=== PATIENT | male | born 1965 | race American Indian/Alaskan Native ===

== ENCOUNTER 2019-01-30 11:13 | Emergency (ER) | payer OTHER ==
[2019-01-30] MEDS ORDERED: VICKS SINEX NS ONE (11:22)
[2019-01-30] MEDS ORDERED: XYLOCAINE 2%/EPI 1:100,000 INFILTRATI ONE (11:23)
[2019-01-30] MEDS ORDERED: COCAINE 4% TP ONE (11:39)
[2019-01-30] MEDS ORDERED: CATAPRES PO ONE (12:06)
[2019-01-30 13:00] LABS: Basophils # (Auto) 0.1 K/mm3 (0.0-0.1); Basophils % (Auto) 1.4 % (0.0-1.8); Eosinophils # (Auto) 0.1 K/mm3 (0.0-0.4); Eosinophils % (Auto) 2.1 % (0.0-4.3); Hematocrit 32.5 % (35.5-45.6); Hemoglobin 10.9 gm/dl (11.8-15.2); Lymphocytes # (Auto) 0.9 K/mm3 (1.2-5.4); Lymphocytes % (Auto) 18.7 % (13.4-35.0); Mean Corpuscular HGB Conc 33 % (32-34); Mean Corpuscular Volume 83 fl (84-94); Monocytes # (Auto) 0.5 K/mm3 (0.0-0.8); Monocytes % (Auto) 9.5 % (0.0-7.3); Platelet Count 215 K/mm3 (140-440); Red Cell Distribution Width 17.3 % (13.2-15.2)
--- NOTE | 2019-01-30 14:16 | Emergency Department Report ---
ED General Adult HPI - General Chief complaint: Nosebleed Stated complaint: NOSE BLEED Time Seen by Provider: 01/30/19 11:36 Source: patient Mode of arrival: Ambulatory Limitations: No Limitations - History of Present Illness Initial comments: Patient is a 53-year-old male past medical history of atrial fibrillation and congestive heart failure who presents with epistaxis that has been going on for the last 30 minutes. Patient states that he had a nosebleed on however it resolved. Patient takes Elliquis for his atrial fibrillation and he states that he had some profuse bleeding in his nose. Patient denies being any pain - Related Data Previous Rx's Medication Instructions Recorded Last Taken Type Oxymetazoline 0.05% [Afrin] 2 spray NS Q6H #1 bottle 01/30/19 Unknown Rx Allergies Allergy/AdvReac Type Severity Reaction Status Date / Time No Known Allergies Allergy Verified 01/30/19 11:25 ED Review of Systems ROS: Stated complaint: NOSE BLEED Other details as noted in HPI Constitutional: denies: chills, fever Eyes: denies: eye pain, eye discharge, vision change ENT: epistaxis. denies: ear pain, throat pain Respiratory: denies: cough, shortness of breath, wheezing Cardiovascular: denies: chest pain, palpitations Endocrine: no symptoms reported Gastrointestinal: denies: abdominal pain, nausea, diarrhea Genitourinary: denies: urgency, dysuria Musculoskeletal: denies: back pain, joint swelling, arthralgia Skin: denies: rash, lesions Neurological: denies: headache, weakness, paresthesias Psychiatric: denies: anxiety, depression Hematological/Lymphatic: denies: easy bleeding, easy bruising ED Past Medical Hx - Past Medical History Previous Medical History?: Yes Hx Hypertension: Yes Additional medical history: chf, cardioversion,gout - Surgical History Past Surgical History?: No - Social History Smoking Status: Never Smoker Substance Use Type: None - Medications Home Medications: Home Medications Medication Instructions Recorded Confirmed Last Taken Type Oxymetazoline 0.05% [Afrin] 2 spray NS Q6H #1 bottle 01/30/19 Unknown Rx ED Physical Exam - General Limitations: No Limitations General appearance: alert, in no apparent distress - Head Head exam: Present: atraumatic, normocephalic - Eye Eye exam: Present: normal appearance - ENT ENT exam: Present: other (epistaxis bilaterally ) - Neck Neck exam: Present: normal inspection - Respiratory Respiratory exam: Present: normal lung sounds bilaterally. Absent: respiratory distress - Cardiovascular Cardiovascular Exam: Present: regular rate, normal rhythm. Absent: systolic murmur, diastolic murmur, rubs, gallop - GI/Abdominal GI/Abdominal exam: Present: soft, normal bowel sounds - Rectal Rectal exam: Present: deferred - Extremities Exam Extremities exam: Present: normal inspection - Back Exam Back exam: Present: normal inspection - Neurological Exam Neurological exam: Present: alert, oriented X3 - Psychiatric Psychiatric exam: Present: normal affect, normal mood - Skin Skin exam: Present: warm, dry, intact, normal color. Absent: rash ED Course Vital Signs 01/30/19 01/30/19 01/30/19 11:19 12:25 12:27 Temperature 98 F Pulse Rate 89 43 L Respiratory 18 16 Rate Blood Pressure 201/117 Blood Pressure 158/88 [Left] O2 Sat by Pulse 98 100 100 Oximetry 01/30/19 01/30/19 01/30/19 12:30 12:37 12:46 Temperature Pulse Rate Respiratory Rate Blood Pressure 162/89 165/87 162/89 Blood Pressure [Left] O2 Sat by Pulse 97 99 Oximetry 01/30/19 01/30/19 13:00 13:16 Temperature Pulse Rate Respiratory Rate Blood Pressure 162/101 162/101 Blood Pressure [Left] O2 Sat by Pulse 96 99 Oximetry - Procedure Description Procedures done: Provided epistaxis treatment applied 4% topical cocaine to multiple Q-tips and packed both nares in place. Bleeding stopped observed patient several hours after movable and patient is bleeding has ceased patient tolerated the procedure well. ED Medical Decision Making - Lab Data Result diagrams: 01/30/19 12:40 Lab Results 01/30/19 Range/Units 12:40 WBC 5.0 (4.5-11.0) K/mm3 RBC 3.90 (3.65-5.03) M/mm3 Hgb 10.9 L (11.8-15.2) gm/dl Hct 32.5 L (35.5-45.6) % MCV 83 L (84-94) fl MCH 28 (28-32) pg MCHC 33 (32-34) % RDW 17.3 H (13.2-15.2) % Plt Count 215 (140-440) K/mm3 Lymph % (Auto) 18.7 (13.4-35.0) % [place] % (Auto) 9.5 H (0.0-7.3) % Eos % (Auto) 2.1 (0.0-4.3) % Baso % (Auto) 1.4 (0.0-1.8) % Lymph # 0.9 L (1.2-5.4) K/mm3 [place] # 0.5 (0.0-0.8) K/mm3 Eos # 0.1 (0.0-0.4) K/mm3 Baso # 0.1 (0.0-0.1) K/mm3 Seg Neutrophils % 68.3 (40.0-70.0) % Seg Neutrophils # 3.4 (1.8-7.7) K/mm3 - Medical Decision Making Chief medical diagnosis: Anterior epistaxis Differential medical diagnosis: Posterior epistaxis, coagulopathy, I will get CBC and will do anterior packing of the nose tolerated the procedure well also and patient home and follow-up with his primary care doctor discussed plan with patient agrees with plan additional verbal discharge instructions were given Critical care attestation.: If time is entered above; I have spent that time in minutes in the direct care of this critically ill patient, excluding procedure time. ED Disposition Clinical Impression: Epistaxis Disposition: DC-01 TO HOME OR SELFCARE Is pt being admited?: No Does the pt Need Aspirin: No Condition: Stable Instructions: Epistaxis (ED) Prescriptions: Oxymetazoline 0.05% [Afrin] 2 spray NS Q6H #1 bottle Referrals: CHUN SAWYER MD [Referring] - 3-5 Days
[2019-01-31 18:51] VITALS: BP 162/101
== END 2019-01-30 14:50 | disposition home or self-care (01) ==
LOC: ED 11:13
DX: R04.0 Epistaxis (principal); I11.0 Hypertensive heart disease with heart failure; I50.9 Heart failure, unspecified; M10.9 Gout, unspecified
CPT/HCPCS: 36415; 85025; 99283

== ENCOUNTER 2019-02-09 17:59 | Emergency (ER) | payer OTHER ==
--- NOTE | 2019-02-09 18:05 | Emergency Department Report ---
Blank Doc - Documentation Documentation: This is a 53-year-old male that presents with nosebleed. Stated is on a blood thinner. This initial assessment/diagnostic orders/clinical plan/treatment(s) is/are subject to change based on patient's health status, clinical progression and re- assessment by fellow clinical providers in the ED. Further treatment and workup at subsequent clinical providers discretion. Patient/guardians urged not to elope from the ED as their condition may be serious if not clinically assessed and managed. Initial orders include: 1- Patient sent to MAIN for further evaluation and treatment 2- labs
[2019-02-09] MEDS ORDERED: VICKS SINEX NS ONE (18:39)
[2019-02-09 19:03] LABS: Basophils # (Auto) 0.1 K/mm3 (0.0-0.1); Basophils % (Auto) 1.2 % (0.0-1.8); Eosinophils # (Auto) 0.2 K/mm3 (0.0-0.4); Eosinophils % (Auto) 4.2 % (0.0-4.3); Hematocrit 34.5 % (35.5-45.6); Hemoglobin 11.3 gm/dl (11.8-15.2); Lymphocytes # (Auto) 1.3 K/mm3 (1.2-5.4); Lymphocytes % (Auto) 23.8 % (13.4-35.0); Mean Corpuscular HGB Conc 33 % (32-34); Mean Corpuscular Volume 84 fl (84-94); Monocytes # (Auto) 0.6 K/mm3 (0.0-0.8); Monocytes % (Auto) 10.8 % (0.0-7.3); Platelet Count 245 K/mm3 (140-440); Red Cell Distribution Width 18.2 % (13.2-15.2)
[2019-02-09 19:11] LABS: INR 1.12 (0.87-1.13)
[2019-02-09 19:12] LABS: Partial Thromboplastin Time 31.6 Sec. (24.2-36.6)
--- NOTE | 2019-02-09 19:15 | Emergency Department Report ---
ED ENT HPI - General Chief complaint: Nosebleed Stated complaint: NOSE BLEED FOR HOURS Time Seen by Provider: 02/09/19 18:04 Source: patient Mode of arrival: Ambulatory Limitations: No Limitations - History of Present Illness Initial comments: 53-year-old male, currently on Levaquin is for A. fib, presents to ED with intermittent nosebleed over the last 3 days, worsening today. Patient states believes are spontaneous, denies blowing nose, rubbing nose, picking nose. Unable to control the bleeding this evening. MD complaint: epistaxis -: days(s) (3) Location: nose Severity: moderate Consistency: intermittent Improves with: pressure Worsens with: none Context-Epistaxis: other (Eliquis use for Afib) - Related Data Previous Rx's Medication Instructions Recorded Last Taken Type Oxymetazoline 0.05% [Afrin] 2 spray NS Q6H #1 bottle 01/30/19 Unknown Rx Allergies Allergy/AdvReac Type Severity Reaction Status Date / Time No Known Allergies Allergy Verified 01/30/19 11:25 ED Dental HPI - General Chief complaint: Nosebleed Stated complaint: NOSE BLEED FOR HOURS Time Seen by Provider: 02/09/19 18:04 Source: patient Mode of arrival: Ambulatory Limitations: No Limitations - Related Data Previous Rx's Medication Instructions Recorded Last Taken Type Oxymetazoline 0.05% [Afrin] 2 spray NS Q6H #1 bottle 01/30/19 Unknown Rx Allergies Allergy/AdvReac Type Severity Reaction Status Date / Time No Known Allergies Allergy Verified 01/30/19 11:25 ED Review of Systems ROS: Stated complaint: NOSE BLEED FOR HOURS Other details as noted in HPI Comment: All other systems reviewed and negative ENT: epistaxis Neurological: denies: headache ED Past Medical Hx - Past Medical History Previous Medical History?: Yes Hx Hypertension: Yes Additional medical history: chf, cardioversion,gout - Social History Smoking Status: Never Smoker - Medications Home Medications: Home Medications Medication Instructions Recorded Confirmed Last Taken Type Oxymetazoline 0.05% [Afrin] 2 spray NS Q6H #1 bottle 01/30/19 Unknown Rx ED Physical Exam - General Limitations: No Limitations General appearance: alert, in no apparent distress - Head Head exam: Present: atraumatic, normocephalic - Eye Eye exam: Present: normal appearance - ENT ENT exam: Present: other (active bleeding from right nare) - Respiratory Respiratory exam: Present: normal lung sounds bilaterally. Absent: respiratory distress - Cardiovascular Cardiovascular Exam: Present: regular rate, normal rhythm - GI/Abdominal GI/Abdominal exam: Absent: distended - Neurological Exam Neurological exam: Present: alert, oriented X3 - Psychiatric Psychiatric exam: Present: normal affect, normal mood - Skin Skin exam: Present: warm, dry, intact, normal color ED Course Vital Signs 02/09/19 02/09/19 02/09/19 18:02 18:04 18:35 Temperature 98.2 F Pulse Rate 62 66 66 Respiratory 20 20 16 Rate Blood Pressure 219/119 Blood Pressure 219/119 184/95 [Right] O2 Sat by Pulse 98 99 99 Oximetry 02/09/19 02/09/19 19:30 20:49 Temperature Pulse Rate 72 Respiratory 14 Rate Blood Pressure Blood Pressure 179/92 172/87 [Right] O2 Sat by Pulse 100 Oximetry - Reevaluation(s) Reevaluation #1: 02/09/19 19:13 7.5 cm Rhinorocket placed in right nare, filled with 10 cc or air. Will observe. Reevaluation #2: 02/09/19 20:11 Bleeding controlled. BP remains elevated. Will give clonidine. ED Medical Decision Making - Lab Data Result diagrams: 02/09/19 18:30 02/09/19 18:30 - Medical Decision Making 53 yo M on [place] presents to ED with nosebleed. Rhinorocket placed in right nare. Bleeding controlled, no bleeding from left nare either. BP treated w/ clonidine. Pt given ENT follow-up info for Rhinorocket removal. Return precautions given. - Differential Diagnosis epistaxis Critical care attestation.: If time is entered above; I have spent that time in minutes in the direct care of this critically ill patient, excluding procedure time. ED Disposition Clinical Impression: Epistaxis, Hypertension Disposition: - TO HOME OR SELFCARE Is pt being admited?: No Condition: Stable Instructions: Epistaxis (ED) Referrals: FARA DEL ROSARIO MD [Staff Physician] - 24 Hours PRIMARY CARE, [Referring] - as needed Forms: Work/School Release Form(ED) Time of Disposition: 20:11
[2019-02-09 19:19] LABS: Calcium 8.9 mg/dL (8.4-10.2)
[2019-02-09] MEDS ORDERED: CATAPRES PO ONE (20:10)
[2019-02-09 20:50] VITALS: BP 172/87
== END 2019-02-09 20:49 | disposition home or self-care (01) ==
LOC: ED 17:59
DX: R04.0 Epistaxis (principal); I10 Essential (primary) hypertension
CPT/HCPCS: 36415; 80048; 85025; 85610; 85730

== ENCOUNTER 2019-02-10 12:14 | Emergency (ER) | payer OTHER ==
--- NOTE | 2019-02-10 12:32 | Emergency Department Report ---
Chief Complaint: Recheck/Abnormal Lab/Rx Stated Complaint: RECHECK Time Seen by Provider: 02/10/19 12:31 - HPI History of Present Illness: This is a 53 y.o. male that presents to ER for rhinorocket removed from right nare. Rhinorocket placed yesterday in this ER. Referral to ENT and office closed today for removal. PMH HTN, A.fib - Exam Vital Signs: Vital Signs 02/10/19 12:31 Temperature 97.4 F L Pulse Rate 58 L Respiratory 20 Rate Blood Pressure 181/94 O2 Sat by Pulse 99 Oximetry MSE screening note: Focused history and physical exam performed. Due to findings the following was ordered: ED Disposition for MSE Condition: Stable
--- NOTE | 2019-02-10 15:35 | Emergency Department Report ---
ED General Adult HPI - General Chief complaint: Recheck/Abnormal Lab/Rx Stated complaint: RECHECK Time Seen by Provider: 02/10/19 12:31 Source: patient Mode of arrival: Ambulatory Limitations: No Limitations - History of Present Illness Severity scale (0 -10): 0 - Related Data Previous Rx's Medication Instructions Recorded Last Taken Type Oxymetazoline 0.05% [Afrin] 2 spray NS Q6H #1 bottle 01/30/19 Unknown Rx Allergies Allergy/AdvReac Type Severity Reaction Status Date / Time No Known Allergies Allergy Verified 01/30/19 11:25 ED Review of Systems ROS: Stated complaint: RECHECK Other details as noted in HPI ED Past Medical Hx - Past Medical History Hx Hypertension: Yes Additional medical history: chf, cardioversion,gout - Social History Smoking Status: Never Smoker Substance Use Type: None - Medications Home Medications: Home Medications Medication Instructions Recorded Confirmed Last Taken Type Oxymetazoline 0.05% [Afrin] 2 spray NS Q6H #1 bottle 01/30/19 Unknown Rx ED Physical Exam - General Limitations: No Limitations ED Course Vital Signs 02/10/19 12:31 Temperature 97.4 F L Pulse Rate 58 L Respiratory 20 Rate Blood Pressure 181/94 O2 Sat by Pulse 99 Oximetry Critical care attestation.: If time is entered above; I have spent that time in minutes in the direct care of this critically ill patient, excluding procedure time. ED Disposition Condition: Stable Referrals: PRIMARY CARE, [Primary Care Provider] - 3-5 Days
--- NOTE | 2019-02-10 15:48 | Emergency Department Report ---
ED General Adult HPI - General Chief complaint: Recheck/Abnormal Lab/Rx Stated complaint: RECHECK Time Seen by Provider: 02/10/19 12:31 Source: patient Mode of arrival: Ambulatory Limitations: No Limitations - History of Present Illness Initial comments: 53-year-old male on a requests emergency department seeking reevaluation. Epistaxis. She was seen for yesterday. A Rhino Rocket was placed was right near he was advised follow-up with ENT. However, the office was closely. Return to emergency department for packing removal. He was reports no pain, no discharge. Radiation: non-radiation Severity scale (0 -10): 0 Improves with: none Worsens with: none Treatments Prior to Arrival: none - Related Data Previous Rx's Medication Instructions Recorded Last Taken Type Oxymetazoline 0.05% [Afrin] 2 spray NS Q6H #1 bottle 01/30/19 Unknown Rx Allergies Allergy/AdvReac Type Severity Reaction Status Date / Time No Known Allergies Allergy Verified 01/30/19 11:25 ED Review of Systems ROS: Stated complaint: RECHECK Other details as noted in HPI Constitutional: denies: chills, fever Eyes: denies: eye pain, eye discharge, vision change ENT: epistaxis. denies: ear pain, throat pain Respiratory: denies: cough, shortness of breath, wheezing Cardiovascular: denies: chest pain, palpitations Endocrine: no symptoms reported Gastrointestinal: denies: abdominal pain, nausea, diarrhea Genitourinary: denies: urgency, dysuria Musculoskeletal: denies: back pain, joint swelling, arthralgia Skin: denies: rash, lesions Neurological: denies: headache, weakness, paresthesias Psychiatric: denies: anxiety, depression Hematological/Lymphatic: denies: easy bleeding, easy bruising ED Past Medical Hx - Past Medical History Hx Hypertension: Yes Additional medical history: chf, cardioversion,gout - Social History Smoking Status: Never Smoker Substance Use Type: None - Medications Home Medications: Home Medications Medication Instructions Recorded Confirmed Last Taken Type Oxymetazoline 0.05% [Afrin] 2 spray NS Q6H #1 bottle 01/30/19 Unknown Rx ED Physical Exam - General Limitations: No Limitations General appearance: alert, in no apparent distress - Head Head exam: Present: atraumatic, normocephalic - Eye Eye exam: Present: normal appearance - ENT ENT exam: Present: mucous membranes moist, other (redness to the nasal mucosa on the right side at the Rhino Rocket was removed. No active bleeding. Clear blood-tinged nasal discharge was noted, however, it slowed. Airway was patent. No signs of an infectious processes) - Neck Neck exam: Present: normal inspection - Respiratory Respiratory exam: Present: normal lung sounds bilaterally. Absent: respiratory distress - Cardiovascular Cardiovascular Exam: Present: regular rate, normal rhythm. Absent: systolic murmur, diastolic murmur, rubs, gallop - GI/Abdominal GI/Abdominal exam: Present: soft, normal bowel sounds - Rectal Rectal exam: Present: deferred - Extremities Exam Extremities exam: Present: normal inspection - Back Exam Back exam: Present: normal inspection - Neurological Exam Neurological exam: Present: alert, oriented X3 - Psychiatric Psychiatric exam: Present: normal affect, normal mood - Skin Skin exam: Present: warm, dry, intact, normal color. Absent: rash ED Course Vital Signs 02/10/19 12:31 Temperature 97.4 F L Pulse Rate 58 L Respiratory 20 Rate Blood Pressure 181/94 O2 Sat by Pulse 99 Oximetry ED Medical Decision Making - Medical Decision Making Rhino Rocket was removed. No complications. No actively bleeding with immediate packing removal. [id number] later in the nasal cavity was rechecked, still no signs of any epistaxis. He was advised on when to return to the emergency Department and encouraged to keep his appointment with ENT as already scheduled for next week. Critical care attestation.: If time is entered above; I have spent that time in minutes in the direct care of this critically ill patient, excluding procedure time. ED Disposition Clinical Impression: History of epistaxis Disposition: - TO HOME OR SELFCARE Is pt being admited?: No Does the pt Need Aspirin: No Condition: Stable Instructions: Epistaxis (ED) Referrals: PRIMARY CARE, [Primary Care Provider] - 3-5 Days
[2019-02-10 16:16] VITALS: BP 178/88
== END 2019-02-10 16:11 | disposition home or self-care (01) ==
LOC: ED 12:14
DX: R04.0 Epistaxis (principal); I10 Essential (primary) hypertension; I50.9 Heart failure, unspecified; M10.9 Gout, unspecified
CPT/HCPCS: 99282